=== PATIENT | female | born 1995 | race Caucasian/White ===

== ENCOUNTER 2017-07-21 09:52 | Outpatient (CLI) | payer OTHER ==
[2017-07-21 11:13] LABS: ADD MAN DIFF? NO
[2017-07-21 11:21] LABS: BASOPHILS % 0.2 % (0.0-2.0); EOSINOPHILS % 0.3 % (0.0-7.0); HEMATOCRIT 33.9 % (37.0-47.0); HEMOGLOBIN 11.9 g/dl (12.0-16.0); LYMPHOCYTES # 2.3 10^3/ul (0.8-2.9); LYMPHOCYTES % 25.7 % (18.0-55.0); MEAN CORPUSCULAR HEMOGLOBIN 30.5 pg (29.0-33.0); MEAN CORPUSCULAR HGB CONC 35.1 g/dl (32.0-37.0); MEAN CORPUSCULAR VOLUME 86.9 fl (72.0-104.0); MEAN PLATELET VOLUME 11.4 fl (7.4-10.4); MONOCYTE # 0.6 10^3/ul (0.3-0.9); MONOCYTES % 6.1 % (0.0-13.0); NEUTROPHIL # 6.1 10^3/ul (1.6-7.5); NEUTROPHILS % 67.4 % (30.0-74.0); PLATELET COUNT 218 10^3/UL (140-415); RED CELL DISTRIBUTION WIDTH 11.9 % (11.5-14.5)
[2017-07-21 11:37] LABS: ALANINE AMINOTRANSFERASE 31 IU/L (13-69); ALBUMIN 3.5 g/dl (3.3-4.9); ALBUMIN/GLOBULIN RATIO 0.94; ALKALINE PHOSPHATASE 107 IU/L (42-121); ANION GAP 13 (8-16); ASPARTATE AMINO TRANSFERASE 26 IU/L (15-46); BILIRUBIN,INDIRECT 0.1 mg/dl (0-1.1); BILIRUBIN,TOTAL 0.1 mg/dl (0.2-1.3); BLOOD UREA NITROGEN 8 mg/dl (7-20); CALCIUM 9.3 mg/dl (8.4-10.2); CARBON DIOXIDE 22 mmol/L (21-31); CHLORIDE 108 mmol/L (97-110); CREATININE 0.49 mg/dl (0.44-1.00); GLUCOSE 90 mg/dl (70-220); POTASSIUM 3.6 mmol/L (3.5-5.1); SODIUM 139 mmol/L (135-144); TOTAL PROTEIN 7.2 g/dl (6.1-8.1)
[2017-07-21 11:45] LABS: ADD UMIC YES; UR AMORPHOUS CRYSTAL FEW /HPF (NONE SEEN); UR ASCORBIC ACID NEGATIVE (NEGATIVE); UR BACTERIA FEW /HPF (NONE SEEN); UR BILIRUBIN (Dip) NEGATIVE (NEGATIVE); UR BLOOD (Dip) NEGATIVE (NEGATIVE); UR CLARITY CLOUDY (CLEAR); UR COLOR YELLOW (YELLOW); UR GLUCOSE (Dip) NEGATIVE (NEGATIVE); UR KETONES (Dip) NEGATIVE (NEGATIVE); UR LEUKOCYTE ESTERASE (Dip) NEGATIVE Leu/ul (NEGATIVE); UR NITRITE (Dip) NEGATIVE (NEGATIVE); UR RBC 0 /HPF (0-5); UR SPECIFIC GRAVITY (Dip) 1.018 (1.003-1.030); UR SQUAMOUS EPITHELIAL CELL FEW /HPF (FEW); UR TOTAL PROTEIN (Dip) NEGATIVE (NEGATIVE); UR UROBILINOGEN (Dip) 1+ mg/dL (NEGATIVE); UR WBC 0 /HPF (0-5)
== END 2017-07-21 12:30 | disposition home or self-care (01) ==
LOC: OBT 09:52 → L-D 09:53 → OBT 12:30
DX: O26.893 Other specified pregnancy related conditions, third trimester (principal); Z3A.36 36 weeks gestation of pregnancy; R42 Dizziness and giddiness
CPT/HCPCS: 76818; 80053; 81001; 84560; 85025

== ENCOUNTER 2017-07-30 02:20 | Outpatient (CLI) | payer OTHER ==
[2017-07-30 03:43] LABS: ADD UMIC NO; UR ASCORBIC ACID 20 mg/dL (NEGATIVE); UR BILIRUBIN (Dip) NEGATIVE (NEGATIVE); UR BLOOD (Dip) NEGATIVE (NEGATIVE); UR CLARITY CLEAR (CLEAR); UR COLOR YELLOW (YELLOW); UR GLUCOSE (Dip) NEGATIVE (NEGATIVE); UR KETONES (Dip) NEGATIVE (NEGATIVE); UR LEUKOCYTE ESTERASE (Dip) NEGATIVE Leu/ul (NEGATIVE); UR NITRITE (Dip) NEGATIVE (NEGATIVE); UR SPECIFIC GRAVITY (Dip) 1.011 (1.003-1.030); UR TOTAL PROTEIN (Dip) NEGATIVE (NEGATIVE); UR UROBILINOGEN (Dip) NEGATIVE (NEGATIVE)
[2017-07-30 03:55] LABS: RUPTURE FETAL MEMBRANES NEGATIVE (NEGATIVE)
== END 2017-07-30 05:00 | disposition home or self-care (01) ==
LOC: OBT 02:20 → L-D 02:20 → OBT 05:00
DX: O47.1 False labor at or after 37 completed weeks of gestation (principal); O26.893 Other specified pregnancy related conditions, third trimester; M41.9 Scoliosis, unspecified; Z3A.37 37 weeks gestation of pregnancy
CPT/HCPCS: 76815; 76818; 81003; 84112

== ENCOUNTER 2017-08-09 07:38 | Inpatient (IN) | payer OTHER ==
[2017-08-09 08:47] LABS: RUPTURE FETAL MEMBRANES POSITIVE (NEGATIVE)
[2017-08-09] MEDS ORDERED: LIDOCAINE 1% (MPF) 30 ML INJ INJ (09:30)
[2017-08-09] MEDS ORDERED: IBUPROFEN 600 MG TAB PO (09:30)
[2017-08-09] MEDS ORDERED: CARBOPROST 250 MCG INJ IM (09:30)
[2017-08-09] MEDS ORDERED: MISOPROSTOL 200 MCG TAB PR (09:30)
[2017-08-09] MEDS ORDERED: OXYTOCIN 30 UNITS/LR 500 ML IV ×3 (09:30→23:30)
[2017-08-09] MEDS: LACTATED RINGER'S 1,000 ML IV ×2 (09:54→18:44)
[2017-08-09] MEDS: AMPICILLIN 2 GM/NS (PMX) 100 ML IV (09:54)
[2017-08-09 10:28] LABS: ADD MAN DIFF? NO
[2017-08-09 10:30] LABS: WHITE BLOOD COUNT 9.1 10^3/ul (4.8-10.8)
[2017-08-09 10:30] LABS: BASOPHILS % 0.3 % (0.0-2.0); EOSINOPHILS % 0.4 % (0.0-7.0); HEMOGLOBIN 12.2 g/dl (12.0-16.0); LYMPHOCYTES # 1.9 10^3/ul (0.8-2.9); LYMPHOCYTES % 21.3 % (18.0-55.0); MEAN CORPUSCULAR HEMOGLOBIN 30.3 pg (29.0-33.0); MEAN CORPUSCULAR HGB CONC 34.9 g/dl (32.0-37.0); MEAN CORPUSCULAR VOLUME 86.8 fl (72.0-104.0); MEAN PLATELET VOLUME 11.7 fl (7.4-10.4); MONOCYTE # 0.4 10^3/ul (0.3-0.9); MONOCYTES % 4.7 % (0.0-13.0); NEUTROPHIL # 6.6 10^3/ul (1.6-7.5); PLATELET COUNT 218 10^3/UL (140-415); RED BLOOD COUNT 4.03 10^6/ul (4.20-5.40); RED CELL DISTRIBUTION WIDTH 12.3 % (11.5-14.5)
[2017-08-09 10:50] LABS: INR 0.87; PARTIAL THROMBOPLASTIN TIME 25.6 Sec (25.0-35.0); PROTIME 11.9 Sec (11.9-14.9); PT RATIO 0.9
[2017-08-09] MEDS: AMPICILLIN 1 GM/NS (PMX) 50 ML IV ×3 (13:59→21:23)
[2017-08-09] MEDS: MISOPROSTOL 25 MCG CAPSULE PO ×3 (14:34→23:10)
[2017-08-09 20:38] LABS: RAPID PLASMA REAGIN NONREACTIVE (NR)
[2017-08-09 20:47] LABS: HEPATITIS B SURFACE ANTIGEN NEGATIVE (NEGATIVE)
[2017-08-10] MEDS: AMPICILLIN 1 GM/NS (PMX) 50 ML IV ×6 (01:33→21:33)
[2017-08-10] MEDS: MISOPROSTOL 25 MCG CAPSULE PO ×2 (04:06→08:41)
[2017-08-10] MEDS: LACTATED RINGER'S 1,000 ML IV ×3 (04:07→18:28)
[2017-08-10] MEDS: BUTORPHANOL 2 MG INJ IV (10:46)
[2017-08-10] MEDS: OXYTOCIN 30 UNITS/LR 500 ML IV ×3 (15:10→23:31)
[2017-08-10] MEDS ORDERED: FENTAnyl 2MCG/ML-ROPIV 0.2% 100 ML (18:23)
[2017-08-10] MEDS ORDERED: NALOXONE (0.4 MG/ML) INJ IV (19:00)
[2017-08-10] MEDS ORDERED: KETOROLAC 30 MG INJ IV (19:00)
[2017-08-10] MEDS ORDERED: DIPHENHYDRAMINE 50 MG INJ IV (19:00)
[2017-08-10] MEDS ORDERED: HYDROmorphONE 0.5 MG/0.5 ML SYG IV ×2 (19:00)
[2017-08-10] MEDS ORDERED: ONDANSETRON 4 MG INJ IV (19:00)
[2017-08-10] MEDS ORDERED: ZOLPIDEM 5 MG TAB PO (19:00)
[2017-08-10] MEDS ORDERED: FENTAnyl 2MCG/ML-ROPIV 0.2% 100 ML BAG EPI (19:00)
[2017-08-10] MEDS: METHYLERGONOVINE 0.2 MG INJ IM (23:14)
[2017-08-11] MEDS ORDERED: OXYCODONE/ASPIRIN (4.88/325) TAB PO ×2 (01:00)
[2017-08-11] MEDS ORDERED: METHYLERGONOVINE 0.2 MG INJ IM (01:00)
[2017-08-11] MEDS ORDERED: MISOPROSTOL 200 MCG TAB PR (01:00)
[2017-08-11] MEDS ORDERED: CARBOPROST 250 MCG INJ IM (01:00)
[2017-08-11] MEDS ORDERED: ONDANSETRON 4 MG INJ IV (01:00)
[2017-08-11] MEDS ORDERED: OXYTOCIN 30 UNITS/LR 500 ML IV (01:00)
[2017-08-11] MEDS ORDERED: DIBUCAINE 1% 30 GM OINT PR (01:00)
[2017-08-11] MEDS ORDERED: DIPHENHYDRAMINE 25 MG CAP PO (01:00)
[2017-08-11] MEDS ORDERED: SENNA/DOCUSATE NA (8.6MG/50MG) TAB PO ×2 (01:00→09:00)
[2017-08-11] MEDS: BENZOCAINE 20% 56 ML SPRAY TOP (03:01)
[2017-08-11] MEDS: LANOLIN 7 GM TUBE TOP (03:01)
[2017-08-11] MEDS: WITCH HAZEL/GLYCERIN PAD PR (03:01)
[2017-08-11] MEDS: LACTATED RINGER'S 1,000 ML IV ×2 (03:02→11:00)
[2017-08-11 09:20] LABS: ADD MAN DIFF? NO
[2017-08-11 09:23] LABS: WHITE BLOOD COUNT 10.5 10^3/ul (4.8-10.8)
[2017-08-11 09:23] LABS: BASOPHILS % 0.2 % (0.0-2.0); EOSINOPHILS % 0.2 % (0.0-7.0); HEMATOCRIT 30.1 % (37.0-47.0); HEMOGLOBIN 10.3 g/dl (12.0-16.0); LYMPHOCYTES # 1.8 10^3/ul (0.8-2.9); LYMPHOCYTES % 17.2 % (18.0-55.0); MEAN CORPUSCULAR HGB CONC 34.2 g/dl (32.0-37.0); MEAN CORPUSCULAR VOLUME 87.8 fl (72.0-104.0); MEAN PLATELET VOLUME 11.5 fl (7.4-10.4); MONOCYTE # 0.8 10^3/ul (0.3-0.9); MONOCYTES % 7.6 % (0.0-13.0); NEUTROPHIL # 7.8 10^3/ul (1.6-7.5); NEUTROPHILS % 74.5 % (30.0-74.0); PLATELET COUNT 184 10^3/UL (140-415); RED BLOOD COUNT 3.43 10^6/ul (4.20-5.40); RED CELL DISTRIBUTION WIDTH 12.7 % (11.5-14.5)
[2017-08-11] MEDS: IBUPROFEN 600 MG TAB PO (19:00)
[2017-08-12] MEDS: IBUPROFEN 600 MG TAB PO ×2 (00:23→05:47)
== END 2017-08-12 14:25 | disposition home or self-care (01) | DRG 775 ==
LOC: OBT 07:38 → PP1 08-11 01:35 → L-D 07:40 → OBT 09:09 → L-D 09:00
PROVIDERS: Obstetrics & Gynecology
PROC: 10E0XZZ Delivery of Products of Conception, External Approach (ICD-10-PCS; principal; 2017-08-10)
PROC: 0HQ9XZZ Repair Perineum Skin, External Approach (ICD-10-PCS; 2017-08-10)
DX: O42.02 Full-term premature rupture of membranes, onset of labor within 24 hours of rupture (principal); O99.824 Streptococcus B carrier state complicating childbirth; O70.0 First degree perineal laceration during delivery; B95.1 Streptococcus, group B, as the cause of diseases classified elsewhere; Z37.0 Single live birth; Z3A.38 38 weeks gestation of pregnancy
CPT/HCPCS: 62319; 76815; 76818; 84112; 85025; 85610; 85730; 86592; 86900; 86901; 87340

== ENCOUNTER 2017-11-09 22:48 | Emergency (ER) | payer OTHER | END 2017-11-10 02:35 | disposition home or self-care (01) | LOC: FTE 11-10 02:35 | DX: S00.11XA Contusion of right eyelid and periocular area, initial encounter (principal); Y04.8XXA Assault by other bodily force, initial encounter | CPT/HCPCS: 70480; 99284-25 ==